=== PATIENT | female | born 1980 | race Two or more races ===

== ENCOUNTER 2024-02-10 07:07 | Emergency (ER) | payer OTHER ==
[~2024-02-10] VITALS: Ht 170.2 cm; Wt 68.3 kg
--- NOTE | 2024-02-10 07:29 | ED.PDOC ---
HPI Comments 43Y F presents to ED for chief complaint palpitations x1.5hrs. Pt states she has never experienced palpitations like this before. Upon ED arrival, BP was 135/95 and HR 224. Pt states she has a h/o an irregular heart rate since . Additional symptoms include chest pain, nausea, vomiting, SOB, and numbness/tingling. Chest pain is sternal, non-radiating, and described as pressure. Chief Complaint: Chest Pain Time Seen by MD: 07:18 Reviewed Notes: Nurses Notes, Medications, Allergies Allergies: Coded Allergies: No Known Drug Allergy (Verified Allergy, Unknown, 02/10/24) Information Source: Patient Mode of Arrival: Ambulatory Severity: Moderate Timing: Hours Duration: Since onset Location: Substernal Radiation: No Radiation Quality: Pressure Onset: At Rest Cardiac Risk Factors: None PE Risk Factors: None History of: None Modifying Factors: Nothing Associated Signs and Symptoms: SOB, Palpitations, N/V Past Medical History PAST MEDICAL HISTORY: Denies Surgical History: REFRACTIVE SURGEON History: Denies all REFRACTIVE SURGEON Hx Family History Family History: Unknown Social History Smoker: Non-Smoker Alcohol: Denies ETOH Use Drugs: Denies Drug Use Lives In: Home Constitutional: denies: chills, diaphoresis, fatigue, fever, malaise, sweats, weakness, others EENTM: denies: blurred vision, double vision, ear bleeding, ear discharge, ear drainage, ear pain, ear ringing, eye pain, eye redness, hearing loss, mouth pain, mouth swelling, nasal discharge, nose bleeding, nose congestion, nose pain, photophobia, tearing, throat pain, throat swelling, voice changes, others Respiratory: reports: shortness of breath; denies: cough, hemoptysis, orthopnea, SOB at rest, SOB with excertion, stridor, wheezing, others Cardiovascular: reports: chest pain, palpitations; denies: dizzy spells, d iaphoresis, Dyspnea on exertion, edema, irregular heart beat, left arm pain, lightheadedness, PND, syncope, others Gastrointestinal: reports: nausea, vomiting; denies: abdomen distended, abdom inal pain, blood streaked bowels, constipated, diarrhea, dysphagia, difficulty swallowing, hematemesis, melena, poor appetite, poor fluid intake, rectal bleeding, rectal pain, others Genitourinary: denies: abnormal vagina bleeding, burning, dyspareunia, dysuria, flank pain, frequency, hematuria, incontinence, pain, , vagina discharge, urgency, others Neurological: reports: numbness, tingling; denies: dizziness, fainting, headache, left sided numbness, left sided weakness, paresthesia, pre-existing deficit, right sided numbness, right sided weakness, seizure, speech problems, tremors, weakness, others Musculoskeletal: denies: back pain, gout, joint pain, joint swelling, muscle pain, muscle stiffness, neck pain, others Integumetry: denies: bruises, change in color, change in hair/nails, dryness, laceration, lesions, lumps, rash, wounds, others Allergic/Immunocompromised: denies: Difficulty Healing, Frequent Infections, Hives, Itching, others Hematologic/Lymphatic: denies: anemia, blood clots, easy bleeding, easy bruising, swollen glands, others Endocrine: denies: excessive hunger, excessive sweating, excessive thirst, excessive urination, flushing, intolerance to cold, intolerance to heat, unexplained weight gain, unexplained weight loss, others Psychiatric: denies: anxiety, bipolar disorder, depression, hopeless, panic disorder, schizophrenia, sleepless, suicidal, others All Other Systems: Reviewed and Negative Physical Exam General Appearance: No Apparent Distress, Normal HEENT: Normal ENT Inspection, Pharynx Normal, TMs Normal Neck: Full Range of Motion, Non-Tender, Normal, Normal Inspection Respiratory: Chest Non-Tender, Lungs Clear, No Accessory Muscle Use, No Respiratory Distress, Normal Breath Sounds Cardiovascular: No Edema, No JVD, No Murmur, No Gallop, Normal Peripheral Pulses, Tachycardia Breast Exam: Deferred Gastrointestinal: No Organomegaly, Non Tender, No Pulsatile Mass, Normal Bowel Sounds, Soft Genitalia: Deferred Pelvic: Deferred Rectal: Deferred Extremities: No calf tenderness, Normal capillary refill, Normal inspection, Normal range of motion, Non-tender, No pedal edema Musculoskeletal : Apperance: Normal Neurologic: Alert, dials supervisor II-XII nml as Tested, No Motor Deficits, Normal Affect, Normal Mood, No Sensory Deficits Cerebellar Function: NOT DONE Reflexes: NOT DONE Skin: Dry, Normal Color, Warm Lymphatic: No Adenopathy Was a procedure done? Was a procedure done?: No CP Differential Dx Differential Diagnosis: Electrolyte Disorder X-Ray, Labs, Meds, VS Vital Signs Date Time Temp Pulse Resp B/P (MAP) Pulse Ox O2 Delivery O2 Flow Rate FiO2 02/10/24 09:00 89 16 102/77 (85) 100 02/10/24 07:50 97 02/10/24 07:48 105 15 88/70 (76) 98 02/10/24 07:40 219 16 98/71 (80) 97 02/10/24 07:40 219 16 97 Nasal Cannula* 2 28 02/10/24 07:21 97.6 215 24 135/95 (108) 100 02/10/24 07:16 212 Lab Test 02/10/24 11:23 02/10/24 09:40 02/10/24 08:17 Range/Units Troponin I High Sensitivity Pending 68 *H 9 </=34 ng/L White Blood Count 6.6 4.4-10.8 10^3/uL Red Blood Count 4.04 4.0-5.20 10^6/uL Hemoglobin 11.4 L 12.2-16.2 g/dL Hematocrit 35.9 L 36.0-46.0 % Mean Corpuscular Volume 88.9 80.0-100.0 fL Mean Corpuscular Hemoglobin 28.1 28.0-32.0 pg Mean Corpuscular Hemoglobin Concent 31.6 L 32.0-36.0 g/dL Red Cell Distribution Width 15.9 H 11.8-14.3 % Platelet Count 212 140-450 10^3/uL Mean Platelet Volume 8.1 6.9-10.8 fL Neutrophils (%) (Auto) 80.6 H 37.0-80.0 % Lymphocytes (%) (Auto) 12.6 10.0-50.0 % Monocytes (%) (Auto) 6.0 0.0-12.0 % Eosinophils (%) (Auto) 0.2 0.0-7.0 % Basophils (%) (Auto) 0.6 0.0-2.0 % Neutrophils # (Auto) 5.4 1.6-8.6 10 ^3/uL Lymphocytes # (Auto) 0.8 0.4-5.4 10 ^3/uL Monocytes # (Auto) 0.4 0-1.3 10 ^3/uL Eosinophils # (Auto) 0 0-0.8 10 ^3/uL Basophils # (Auto) 0 0-0.2 10 ^3/uL Nucleated Red Blood Cells 0.0 % Sodium Level 138 136-145 mmol/L Potassium Level 3.9 3.5-5.1 mmol/L Chloride Level 107 98-107 mmol/L Carbon Dioxide Level 20 20-31 mmol/L Anion Gap 11 5-15 Blood Urea Nitrogen 8 L 9-23 mg/dL Creatinine 1.15 H 0.550-1.02 mg/dL Glomerular Filtration Rate Calc 60 >90 mL/min BUN/Creatinine Ratio 7.0 L 10.0-20.0 Serum Glucose 122 H 74-106 mg/dL Calcium Level 9.2 8.7-10.4 mg/dL Current Medications Medications (Trade) Dose Ordered Sig/Trent Route Start Time Stop Time Status Last Admin Sodium Chloride 1,000 ml @ 1,000 mls/hr Q1H ONCE IV 02/10/24 07:30 02/10/24 08:29 DC 02/10/24 07:42 Adenosine (Adenosine) 6 mg ONCE ONCE IV 02/10/24 07:30 02/10/24 07:31 DC 02/10/24 07:42 Time of 1ST Reevaluation: 07:48 Reevaluation 1ST: Unchanged Patient Education/Counseling: Diagnosis, Treatment Family Education/Counseling: No Family Present Departure 1 Departure Time of Disposition: 11:51 (Patient presented in SVT. You converted with adenosine. Patient is feeling better. Patient's troponin was elevated likely secondary to demand. Patient's we would like to go home.) Impression: Primary Impression: SVT (supraventricular tachycardia) Disposition: 01 HOME / SELF CARE / HOMELESS Condition: Stable Additional Instructions: You had a very fast heart rhythm today. It is important to follow up with the regular doctor within 1 week. If your symptoms worsen or if any other concerns please return to the emergency room Discharged With: Self Critical Care Note Critical Care Time?: No Stability Stability form required: No Heart Score Heart Score: Heart Score Response (Comments) Value History N/A 0 EKG N/A 0 Age <45 0 Risk Factors N/A 0 Troponin N/A 0 Total 0 I personally scribed for LO BAUM MD ([email or web address]) on 02/10/24 at 07:29. Electronically submitted by Autumn Velasco ([facility]). I personally scribed for LO BAUM MD ([email or web address]) on 02/10/24 at 07:43. Electronically submitted by Autumn Velasco ([facility]). LO BAUM MD Feb 10, 2024 07:29
[2024-02-10] MEDS: ADENOSINE 6 MG/2 ML INJ IV ONE ×2 (07:30→07:42)
[2024-02-10 07:40] VITALS: PULSE 219; RESP 16; O2SAT 97
[2024-02-10] MEDS: SODIUM CHLORIDE 0.9% 1,000 ML IV ONE (07:42)
[2024-02-10 08:47] LABS: Anion Gap 11 (5-15); Potassium 3.9 mmol/L (3.5-5.1); Sodium 138 mmol/L (136-145)
[2024-02-10 08:48] LABS: Calcium 9.2 mg/dL (8.7-10.4)
[2024-02-10 08:51] LABS: Basophils # (auto) 0 10 ^3/uL (0-0.2); Basophils % (auto) 0.6 % (0.0-2.0); Eosinophils # (auto) 0 10 ^3/uL (0-0.8); Eosinophils % (auto) 0.2 % (0.0-7.0); Hematocrit 35.9 % (36.0-46.0); Hemoglobin 11.4 g/dL (12.2-16.2); Lymphocytes # (auto) 0.8 10 ^3/uL (0.4-5.4); Lymphocytes % (auto) 12.6 % (10.0-50.0); Mean Corpuscular Hemoglobin 28.1 pg (28.0-32.0); Mean Corpuscular Hgb Conc. 31.6 g/dL (32.0-36.0); Mean Corpuscular Volume 88.9 fL (80.0-100.0); Monocytes # (auto) 0.4 10 ^3/uL (0-1.3); Neutrophils # (auto) 5.4 10 ^3/uL (1.6-8.6); Neutrophils % (auto) 80.6 % (37.0-80.0); Platelet Count (auto) 212 10^3/uL (140-450); Red Blood Cells 4.04 10^6/uL (4.0-5.20); Red Cell Distribution Width 15.9 % (11.8-14.3); White Blood Cell 6.6 10^3/uL (4.4-10.8)
[2024-02-10 09:03] LABS: Blood Urea Nitrogen 8 mg/dL (9-23); Carbon Dioxide 20 mmol/L (20-31); Chloride 107 mmol/L (98-107); Glucose 122 mg/dL (74-106)
[2024-02-10 12:00] VITALS: BP 105/77; PULSE 82; RESP 16; O2SAT 100
--- NOTE | 2024-02-11 13:32 | ECG ---
[facility] Test Date: 2024-02-10 Test Time: 07:50:19 Pat Name: NORRIS BALES Department: er Room: Gender: F Bar Helper: griselda : 1980 Requested By: LO BAUM Order Number: [id number] Reading MD: Measurements Intervals [place] Rate: 97 P: 82 [place]: 133 QRS: 97 QRSD: 90 T: 51 QT: 357 QTc: 454 Interpretive Statements Sinus rhythm Borderline right axis deviation Minimal ST depression, inferior leads Please click the below link to view image of tracing.
--- NOTE | 2024-02-16 15:09 | ECG ---
[facility] Test Date: 2024-02-10 Test Time: 07:16:29 Pat Name: NORRIS BALES Department: ER Room: Gender: F Spray Foam Installer: DAYLIN : 1980 Requested By: LO BAUM Order Number: [id number] Reading MD: Arvind Suarez Measurements Intervals [place] Rate: 212 P: 0 NM: 0 QRS: 92 QRSD: 97 T: -33 QT: 222 QTc: 417 Interpretive Statements Supraventricular tachycardia Borderline right axis deviation Repolarization abnormality, prob rate related Electronically Signed On 02-17-2024 9:40:08 PST by Arvind Suarez Please click the below link to view image of tracing.
== END 2024-02-10 13:15 | disposition home or self-care (01) ==
LOC: ER 07:07
DX: I47.10 Supraventricular tachycardia, unspecified (principal); Z98.890 Other specified postprocedural states
CPT/HCPCS: 36415; 80048; 84484; 85025; 93005; 96361; 96374; 99285; J0153; J7030